=== PATIENT | female | born 1960 | race Two or more races ===

== ENCOUNTER 2020-06-24 06:00 | Day surgery (SDC) | payer OTHER ==
[~2020-06-24 06:00] MED LIST: ATORVASTATIN CA40 MG PO; BENICAR HCT 401 EACH PO; FORTAMET500 MG PO; GLIPIZIDE XL2.5 MG PO; STEGLATRO5 MG PO
== END 2020-06-24 14:01 | disposition home or self-care (01) ==
LOC: CIR.AMB 06:00
PROVIDERS: ATTEND Obstetrics & Gynecology
DX: N84.0 Polyp of corpus uteri (principal); Z20.828 Contact with and (suspected) exposure to other viral communicable diseases

== ENCOUNTER 2021-04-22 07:45 | Inpatient (IN) | payer OTHER ==
[~2021-04-22] VITALS: Ht 162.6 cm; Wt 85.3 kg
[2021-04-22] MEDS ORDERED: FLONASE16 GM (10:00)
[2021-04-22] MEDS ORDERED: SYMBICORT 16010.2 GM IH (10:00)
[2021-04-30] MEDS ORDERED: ROSUVASTATIN CA40 MG (08:46)
[2021-04-30] MEDS ORDERED: AMLODIPINE BESY10 MG (08:46)
== END 2021-04-30 10:54 | disposition home or self-care (01) | DRG 743 ==
LOC: O/R 04-29 05:35 → OB/GYN 04-29 07:45 → SURH 04-30 00:50
PROVIDERS: ADMIT Obstetrics & Gynecology Gynecologic Oncology; ATTEND Obstetrics & Gynecology Gynecologic Oncology
PROC: 0UT24ZZ Resection of Bilateral Ovaries, Percutaneous Endoscopic Approach (ICD-10-PCS; 2021-04-29)
PROC: 0UT74ZZ Resection of Bilateral Fallopian Tubes, Percutaneous Endoscopic Approach (ICD-10-PCS; 2021-04-29)
PROC: 07BC4ZZ Excision of Pelvis Lymphatic, Percutaneous Endoscopic Approach (ICD-10-PCS; 2021-04-29)
PROC: 0UT94ZZ Resection of Uterus, Percutaneous Endoscopic Approach (ICD-10-PCS; principal; 2021-04-29 20:00)
DX: D25.1 Intramural leiomyoma of uterus (principal); N72 Inflammatory disease of cervix uteri; N80.0 Endometriosis of uterus; N83.292 Other ovarian cyst, left side; N95.0 Postmenopausal bleeding

== ENCOUNTER 2022-10-31 10:22 | Outpatient (CLI) | payer OTHER ==
[~2022-10-31 10:22] MED LIST changes: +AMLODIPINE BESY10 MG; +FLONASE16 GM; +ROSUVASTATIN CA40 MG; +SYMBICORT 16010.2 GM IH
== END 2022-10-31 10:25 | disposition home or self-care (01) ==
LOC: SONOGRAMA 10:22
PROVIDERS: ATTEND Pathology Anatomic Pathology
DX: D34 Benign neoplasm of thyroid gland (principal); E04.9 Nontoxic goiter, unspecified; E04.2 Nontoxic multinodular goiter